=== PATIENT | female | born 1980 | race Caucasian/White ===

== ENCOUNTER 2024-03-13 10:04 | Emergency (ER) | payer OTHER ==
--- OUTSIDE RECORDS SUMMARY | 2024-03-13 10:07 | XMS REPORT | Continuity of Care Document ---
Author Name Unknown Address [address] [facility] [address] [place] [address] [facility] thconnect Address [address] [facility]. [address] [place] [address] Care Team Providers Care Durability Technician Name Role Phone PCP, PATIENT DOES NOT HAVE A Primary Care Physic rylan Unavailable Mercedes Fuentes PA-C Attending Clinician Unknown, Attending Attending Clinician Unavailab MERCEDES Giles Attending Clinician Unavailable Doctor Unassigned, [place] Attending Clinician U DR ALMA Gautam Attending Clinician Unavailable DR ALMA AVINA Attending Clinician Unavailable DR ALMA AVINA Admitting Clinician Unavailable Payers Payer Name Policy Type Policy Number Effective Date Expirati on Date Source [id number] 2023 00:00:00 Allergies, Adverse Reactions, Alerts Allergy Name Allergy Type Status Severity Reaction(s) Onset Date Inactive Date Treating Clinician Comments Source VICODIN TUSS DRUG Active High Unknown-Cmnt 01-07 00:00: 00 [facility] Vicodin Tuss Propensi ty to adverse reaction s Active Unknown - See comments 01-07 00:00: 00 [facility] Vicodin DA Active Unknown 2022-11 00:00: 00 [facility] NO KNOWN ALLERGIE S Drug Class Active [facility] Social History Social Habit Start Date Stop Date Quantity Comments Source Sexual orientation U [facility] Sex Assigned At 1980 00:00:00 1980 00:00:00 [facility] Smoking Status Start Date Stop Date Source Tobacco smoking consumption unknown [facility] Medications Ordered Medication Name Filled Medication Name Start Date Stop Date Current Medication? Ordering Clinician Indication Dosage Frequency Signature (SIG) Comments Components Source ketorolac (TORADOL) injection 30 mg 01-07 19:45: 00 01-07 19:01 :00 No [id number] 30mg Unive [facility] dexamethaso ne sod phos PF injection 10 mg 01-07 19:45: 00 01-07 19:00 :00 No [id number] 10mg Unive [facility] ibuprofen 800 mg tablet 01-07 00:00: 00 Yes [id number] 800mg Take 1 tablet by mouth in the morning and 1 tablet at noon and 1 tablet in the evening. Take with meals. [facility] traMADoL 50 mg tablet 01-05 00:00: 00 Yes [facility] montelukast 10 mg tablet 11-28 00:00: 00 Yes 10mg 1 tablet. [facility] Cholecalcif valente, Vitamin D3, 1,250 mcg (50,000 unit) capsule 2022-11 00:00: 00 Yes [id number] Take 1 capsule by mouth weekly. [facility] diclofenac 75 mg EC tablet 2022-11 00:00: 00 Yes 75mg 1 tablet. [facility] traZODone 50 mg tablet 2022-11 00:00: 00 Yes TAKE 1 TABLET BY MOUTH EVERY DAY AT BEDTIME NEEDED [facility] Vital Signs Vital Name Observation Time Observation Value Comments S mat Systolic blood pressure 2024-01-07 18:35:00 115 mm[Hg] [facility] Diastolic blood pressure 2024-01-07 18:35:00 70 mm[Hg] [facility] Heart rate 2024-01-07 18:35:00 82 /min [facility] 2024-01-07 18:35:00 36.78 Lisseth [facility] Respiratory rate 2024-01-07 18:35:00 15 /min [facility] Body height 2024-01-07 18:35:00 160 cm [facility] Body weight 2024-01-07 18:35:00 105.235 kg [facility] BMI 2024-01-07 18:35:00 41.10 kg/m2 [facility] Oxygen saturation in Arterial blood by Pulse oximetry 2024-01-07 18:35:00 98 /min [facility] Weight 2023-09-26 07:44:00 103.1 KG Weight 2023-09-26 07:44:00 103.1 KG Procedures Procedure Date / Time Performed Performing Clinicia n Source NOTICE OF PRIVACY PRACTICES 2024-01-07 18:27:08 Doctor Unassigned, [place] [facility] ASSIGNMENT OF BENEFITS 2024-01-07 18:26:51 Docto r Unassigned, [place] [facility] Encounters Start Date/Time End Date/Time Encounter Type Admission Type Attending [facility] Care Facility Care Department Encounter ID Source 2024-01-07 12:20:00 2024-01-07 12:40:00 Urgent Care Mercedes Fuentes Unknown, Attending [facility] [id number] [facility] 2024-01-07 12:20:00 2024-01-07 12:20:00 Outpatient R MERCEDES FUENTES [facility] [id number] [facility] 2024-01-07 00:00:00 2024-01-07 00:00:00 Orders Only Doctor Unassigned, [place] [facility] [id number] [facility] 2023-09-26 07:05:00 2023-09-26 08:42:00 Outpatient ALMA MARTINEZ [facility] [id number] [facility] 2023-09-26 07:05:00 2023-09-26 07:05:00 Outpatient ALMA MARTINEZ [facility] [id number] [facility] Results Test Description Test Time Test Comments Results Result Co mments Source XR KNEE LEFT 3 VIEWS *OW*2023-09-26 08:08:[facility] 1980 Sex: FHISTORY: Left knee painLocation: C3 FINDINGS:3 views left knee are provided. Knee joint effusion is suggested.No acute fracture, dislocation, or other acute osseous abnormality is demonstrated.IMPRESSION:1.Knee joint effusion. No acute fracture. No other acute abnormality.Electronically signed by: Francesco COOPER 09/26/2023 08:08 AM CDT (INCLUDES AUTOMATED DIFFERENTIAL) *2023-09-26 08:00:00* Test Item Value Reference Range Interpretation Comme nts WBC (test code = WBC) 8.0 10\S\3/uL 4.5-11.0 RBC (test code = RBC) 4.85 10\S\6/uL 4.30-5.70 HGB (test code = HBG) 14.3 g/dL 12.0-15.5 HCT (test code = HCT) 45.1 % 35.0-44.0 H MCV (test code = MCV) 92.9 fL 81.0-99.0 MCH (test code = MCH) 29.5 pg 27.0-31.0 MCHC (test code = MCHC) 31.7 g/dL 32.0-36.0 L RDW (test code = RDW) 14.3 % 11.5-14.5 PLT (test code = PLT) 281 10\S\3/uL 130-400 MPV (test code = OMPV) 8.4 fL 6.2-10.2 NEUTROP # (test code = NE#) 5.1 10\S\3/uL 1.6-8.0 LYMPH # (test code = LY#) 2.1 10\S\3/uL 1.1-3.5 MID # (test code = GMID#) 0.8 10\S\3/uL 0.0-1.1 GRAN % (test code = GRA%) 64.3 % 35.0-73.0 LYMPH % (test code = GLY%) 25.9 % 20.0-55.0 MID % (test code = GMID%) 9.8 % 0.0-10.0
--- NOTE | 2024-03-13 11:10 | RAD REPORT ---
EXAM DESCRIPTION: RAD - Chest Single View - 03/13/2024 11:04 am CLINICAL HISTORY: PALPITATIONS Chest pain. COMPARISON: No comparisons FINDINGS: Portable technique limits examination quality. The lungs are grossly clear. The heart is normal in size. No displaced fractures. IMPRESSION: No acute intrathoracic process suspected.
[2024-03-13 11:27] LABS: Absolute Basophils 0.1 K/uL (0-0.5); Absolute Eosinophils 0.4 K/uL (0-0.5); Absolute Lymphocytes (CBC) 1.9 K/uL (0.7-4.9); Absolute Monocytes 0.6 K/uL (0.1-1.3); Basophils % 0.8 % (0-1.3); Eosinophils % 4.6 % (0-4.4); Hematocrit 41.5 % (36.0-45.0); Hemoglobin 13.5 g/dL (12.0-15.0); Lymphocytes % 21.4 % (15.3-44.8); MCH 28.8 pg (27.0-35.0); MCHC 32.6 g/dL (32.0-36.0); MCV 88.2 fL (80-100); MPV 8.9 fL (7.6-11.3); Monocytes % 6.6 % (3.3-12.3); Neutrophils % 66.6 % (41.7-73.7); Nucleated Red Blood Cells % 0.1 % (0-0); Platelets 220 thou/uL (152-406); RBC Red Blood Cell Count 4.71 M/uL (3.86-4.86); Red Cell Distribution Width 13.7 % (12.1-15.2)
[2024-03-13 12:04] LABS: Anion Gap 7.8 mEq/L (5.0-15.0); Magnesium 1.7 mg/dL (1.6-2.4); Potassium 3.8 mEq/L (3.5-5.1)
--- NOTE | 2024-03-13 12:10 | EDPHYS ---
Physician Documentation [facility] Name: Emelia Mckeon Age: 43 yrs Sex: Female : 1980 Arrival Date: 03/13/2024 Time: 10:04 Bed 13 Private MD: ED Physician Geronimo Tucker HPI: 03/13 11:01 This 43 yrs old Female presents to ER via Ambulatory with complaints of High Blood rn Pressure. 11:01 The patient has elevated blood pressure and discovered this Work. Onset: The rn symptoms/episode began/occurred just prior to arrival. Modifying factors: The symptoms are aggravated by. 11:01 The patient presents with generalized weakness, lightheadedness. Modifying factors: The rn symptoms are alleviated by nothing, the symptoms are aggravated by nothing. Severity of symptoms: At their worst the symptoms were moderate in the emergency department the symptoms have improved. The patient has not experienced similar symptoms in the past. Patient reports at work, bent over to lift something up and felt lightheaded when stood up, no syncope, went to safety and they checked her blood pressure and was elevated. Blood pressure has since improved and patient feels better. Patient also states that during episode her heart rate on the watch showed 150 rate, was brief, and has also subsided. No history of hypertension. No new medication. No new supplements. No chest pain or trouble breathing. No abdominal or back pain.. 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 - Infectious Disease History:: Denies. - Social history:: Smoking status: Reported history of juuling and/or vaping. - Family history:: not pertinent. - Hospitalizations: : No recent hospitalization is reported. ROS: 11:01 Constitutional: Negative for fever, chills, and weight loss, Cardiovascular: Negative rn for chest pain, and edema, Respiratory: Negative for shortness of breath, cough, wheezing, and pleuritic chest pain, Abdomen/GI: Negative for abdominal pain, nausea, vomiting, diarrhea, and constipation, Back: Negative for injury and pain, MS/Extremity: Negative for injury and deformity, Skin: Negative for injury, rash, and discoloration, Neuro: Negative for headache, weakness, numbness, tingling, and seizure, Exam: 11:01 Constitutional: This is a well developed, well nourished patient who is awake, alert, rn and in no acute distress. Cardiovascular: Regular rate and rhythm with a normal S1 and S2. No gallops, murmurs, or rubs. No pulse deficits. Respiratory: No increased work of breathing, no retractions or nasal flaring. Abdomen/GI: Soft, nontender MS/ Extremity: Pulses equal, no cyanosis. Neurovascular intact. Full, normal range of motion. Equal circumference. Neuro: Awake and alert, GCS 15, oriented to person, place, time, and situation. Cranial nerves II-XII grossly intact. Motor strength 5/5 in all extremities. Sensory grossly intact. Cerebellar exam normal. Normal gait. 11:53 ECG was reviewed by the Attending Physician. rn Vital Signs: 10:29 BP 129 / 75; Pulse 70; Resp 17; Temp 98.2; Pulse Ox 100% ; Weight 98.43 kg; ap3 11:21 BP 116 / 83; Pulse 68; Resp 18; Pulse Ox 100% ; mb9 12:11 BP 123 / 73; Pulse 71; Resp 16; Pulse Ox 100% on R/A; mb9 MDM: 10:17 Patient medically screened. rn 12:05 Differential diagnosis: cardiac arrhythmia, generalized weakness, hypovolemia, rn idiopathic dizziness, near-syncope, vertigo. Data reviewed: vital signs, nurses notes, lab test result(s), EKG, radiologic studies, plain films. 12:07 Counseling: I had a detailed discussion with the patient and/or guardian regarding the rn historical points, exam findings, and any diagnostic results supporting the discharge/admit diagnosis, lab results, radiology results, the need for outpatient follow up, to return to the emergency department if symptoms worsen or persist or if there are any questions or concerns that arise at home. Response to treatment: the patient's symptoms have markedly improved after treatment, and as a result, I will discharge patient. Special discussion: I discussed with the patient/guardian in detail that at this point there is no indication for admission to the hospital. It is understood, however, that if the symptoms persist or worsen the patient needs to return immediately for re-evaluation. Based on the history and exam findings, there is no indication for further emergent testing or inpatient evaluation. I discussed with the patient/guardian the need to see the bed placement coordinator for further evaluation of the symptoms. I discussed with the patient/guardian the need to see the primary care provider for further evaluation of the symptoms. ED course: No acute findings in workup. I do not believe this was a blood pressure issue. This sounds more likely that she had a brief arrhythmia which has now resolved. Unable to capture it on ECG. Troponin negative. Workup negative. Recommend cardiology and PCP follow-up for Holter monitor. Return precautions given and understood. 03/13 10:37 Order name: Basic Metabolic Panel; Complete Time: 12:03/13 10:37 Order name: CBC with Diff; Complete Time: :03/13 10:37 Order name: D-Dimer; Complete Time: :03/13 10:37 Order name: Magnesium; Complete Time: 12:03/13 10:37 Order name: NT PRO-BNP; Complete Time: 12:03/13 10:37 Order name: Troponin HS; Complete Time: 12:03/13 10:37 Order name: XRAY Chest (1 view); Complete Time: 11:03/13 10:37 Order name: EKG; Complete Time: 10:03/13 10:37 Order name: Cardiac monitoring; Complete Time: :03/13 10:37 Order name: EKG - Nurse/Tech; Complete Time: 10:45 03/13 10:37 Order name: IV Saline Lock; Complete Time: :03/13 10:37 Order name: Labs collected and sent; Complete Time: 11:03/13 10:37 Order name: O2 Per Protocol; Complete Time: :03/13 10:37 Order name: O2 Sat Monitoring; Complete Time: :03/13 11:29 Order name: Labs - recollect needed: light green, blue top; Complete Time: 11:35 iw EC:53 Rate is 76 beats/min. Rhythm is regular. QRS [place] is Normal. [place] interval is normal. QRS rn interval is normal. QT interval is normal. No Q waves. T waves are Normal. No ST changes noted. Clinical impression: NSR w/ Non-specific ST/T Changes and PVCs. Interpreted by me. Reviewed by me. Administered Medications: No medications were administered Disposition Summary: 03/13/24 12:09 Discharge Ordered Notes: Location: Home rn Problem: new rn Symptoms: have improved rn Condition: Stable rn Diagnosis - Palpitations rn - Near Syncope rn Followup: rn - With: Private Physician - When: As needed - Reason: Recheck today's complaints, Re-evaluation by your physician Discharge Instructions: - Discharge Summary Sheet rn - Near-Syncope rn - Palpitations rn Forms: - Medication Reconciliation Form rn - Thank You Letter rn - Antibiotic disability attorney - Prescription Opioid Use rn - Patient Portal Instructions rn - Leadership Thank You Letter rn - School release form mb9 - Work release form mb9 Signatures: Dispatcher [employer] Pattie Quinn RN RN iw Nieto, Roman, MD MD rn Prokisch, Amanda, RN RN ap3 Corrections: (The following items were deleted from the chart) 10:31 10:31 Allergies: No Known Allergies; ap3 ap3
--- NOTE | 2024-03-13 12:10 | ER ---
Nurse's Notes [facility] Name: Emelia Mckeon Age: 43 yrs Sex: Female : 1980 Arrival Date: 03/13/2024 Time: 10:04 Bed 13 Private MD: Diagnosis: Palpitations;Near Syncope Presentation: 03/13 10:29 Chief complaint: Patient states: she was at work, when her watch gave her a high blood ap3 pressure reading X's 1. patient denies a history of high blood pressure. patient denies any chest pain, changes in vision, nausea or vomiting. patient does report new work stress. Coronavirus screen: At this time, the client does not indicate any symptoms associated with coronavirus-19. Ebola Screen: No symptoms or risks identified at this time. Initial Sepsis Screen: Does the patient meet any 2 criteria? No. Patient's initial sepsis screen is negative. Does the patient have a suspected source of infection? No. Patient's initial sepsis screen is negative. Risk Assessment: Do you want to hurt yourself or someone else? Patient reports no desire to harm self or others. Onset of symptoms was March 13, 2024. 10:29 Method Of Arrival: Ambulatory ap3 10:29 Acuity: HOWARD 3 ap3 Triage Assessment: 10:32 General: Appears in no apparent distress. Behavior is calm, cooperative, appropriate ap3 for age. Pain: Denies pain. Neuro: Level of Consciousness is awake, alert, obeys commands, Oriented to person, place, time, situation. Cardiovascular: Patient's skin is warm and dry. Respiratory: Airway is patent Respiratory effort is even, unlabored, Respiratory pattern is regular, symmetrical. 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 - Infectious Disease History:: Denies. - Social history:: Smoking status: Reported history of juuling and/or vaping. - Family history:: not pertinent. - Hospitalizations: : No recent hospitalization is reported. Screenin:32 [facility] ED Fall Risk Assessment (Adult) History of falling in the last 3 months, ap3 including since admission No falls in past 3 months (0 pts) Confusion or Disorientation No (0 pts) Intoxicated or Sedated No (0 pts) Impaired Gait No (0 pts) Mobility Assist Device Used No (0 pt) Altered Elimination No (0 pt) Score/Fall Risk Level 0 - 2 = Low Risk Oriented to surroundings, Maintained a safe environment, Educated pt \T\ family on fall prevention, incl call for assistance when getting out of bed, Assessed \T\ reinforced patient's understanding of fall precautions, Provided non-skid footwear, Hourly rounding (assess needs \T\ fall precautionary measures) done, Used ambulatory aids as needed (educated on \T\ assisted with), Used gait belt as appropriate. Abuse screen: Denies threats or abuse. Nutritional screening: No deficits noted. Tuberculosis screening: No symptoms or risk factors identified. Assessment: 11:21 General: Appears in no apparent distress. Behavior is calm, cooperative. Pain: Denies mb9 pain. Neuro: Mccoy Agitation-Sedation Scale (RASS): 0 - Alert and Calm Level of Consciousness is awake, alert, obeys commands, Oriented to person, place, time, situation, Appropriate for age. Neuro: Reports dizziness. Cardiovascular: Heart tones S1 S2 present Patient's skin is warm and dry. Cardiovascular: Pulses are all present. Rhythm is regular. Respiratory: Airway is patent Respiratory effort is even, unlabored, Respiratory pattern is regular, symmetrical. GI: No signs and/or symptoms were reported involving the gastrointestinal system. : No signs and/or symptoms were reported regarding the genitourinary system. EENT: No signs and/or symptoms were reported regarding the EENT system. Derm: Skin is pink, warm \T\ dry. Musculoskeletal: Range of motion: intact in all extremities. 12:11 Reassessment: No changes from previously documented assessment. Patient and/or family mb9 updated on plan of care and expected duration. Pain level reassessed. Patient is alert, oriented x 3, equal unlabored respirations, skin warm/dry/pink. Vital Signs: 10:29 BP 129 / 75; Pulse 70; Resp 17; Temp 98.2; Pulse Ox 100% ; Weight 98.43 kg; ap3 11:21 BP 116 / 83; Pulse 68; Resp 18; Pulse Ox 100% ; mb9 12:11 BP 123 / 73; Pulse 71; Resp 16; Pulse Ox 100% on R/A; mb9 ED Course: 10:07 Patient arrived in ED. rg4 10:17 Geronimo Tucker MD is Attending Physician. rn 10:31 Triage completed. ap3 10:32 Arm band placed on right wrist. ap3 10:45 EKG done, by ED staff, reviewed by Geronimo Tucker MD. ap3 11:06 XRAY Chest (1 view) In Process Unspecified. EDMS 11:13 Tere Palumbo, RN is Primary Nurse. mb9 11:14 Placed in gown. Bed in low position. Call light in reach. Side rails up X 1. Provided mb9 Education on: press call light if needing anything. Client placed on continuous cardiac and pulse oximetry monitoring. NIBP monitoring applied. radio host on. 11:14 No provider procedures requiring assistance completed. mb9 11:21 Initial lab(s) drawn, by mi, sent to lab. Inserted saline lock: 20 gauge in right mb9 antecubital area, using aseptic technique. 11:23 Basic Metabolic Panel Sent. mb9 11:23 CBC with Diff Sent. mb9 11:23 D-Dimer Sent. mb9 11:23 Magnesium Sent. mb9 11:24 NT PRO-BNP Sent. mb9 11:24 Troponin HS Sent. mb9 12:11 IV discontinued, intact, bleeding controlled, No redness/swelling at site. Pressure mb9 dressing applied. Administered Medications: No medications were administered Medication: 11:14 VIS not applicable for this client. mb9 Outcome: 12:09 Discharge ordered by MD. rn 12:12 Discharged to home ambulatory, mb9 12:12 Condition: stable 12:12 Discharge instructions given to patient, Instructed on discharge instructions, follow up and referral plans. Demonstrated understanding of instructions, follow-up care, 12:24 Patient left the ED. mb9 Signatures: Dispatcher [employer] EDMS Geronimo Tucker MD MD rn Garcia, Rubi rg4 Katie Dow RN RN ap3 Breneman, Mary Beth, MARJORIE RN mb9 Corrections: (The following items were deleted from the chart) 10:31 10:31 Allergies: No Known Allergies; ap3 ap3 11:25 11:21 Pulse 68bpm; Resp 18bpm; Pulse Ox 100%; mb9 mb9
[2024-03-13 17:00] VITALS: BP 123/73; TEMP 98.2; O2SAT 100
== END 2024-03-13 12:24 | disposition home or self-care (01) ==
LOC: ER 10:04
DX: R00.2 Palpitations (principal); R55 Syncope and collapse; Z88.5 Allergy status to narcotic agent
CPT/HCPCS: 36415; 71045; 80048; 83735; 83880; 84484; 85025; 85379; 93005; 99284